=== PATIENT | male | born 1960 | race Caucasian/White ===

== ENCOUNTER 2022-09-14 13:46 | Emergency (ER) | payer OTHER, SELFPAY ==
[2022-09-14] MEDS ORDERED: Famotidine/PF 20 mg/2ml Vial ONE (14:27)
[2022-09-14] MEDS ORDERED: Sodium Chloride 0.9% 50 ML ONE (14:27)
[2022-09-14] MEDS ORDERED: Sodium Chloride 0.9% 1,000 ML ONE (14:27)
== END 2022-09-14 18:24 | disposition home or self-care (01) ==
LOC: MADERS 13:46
DX: T78.2XXA Anaphylactic shock, unspecified, initial encounter (principal); F17.220 Nicotine dependence, chewing tobacco, uncomplicated; W57.XXXA Bitten or stung by nonvenomous insect and other nonvenomous arthropods, initial encounter
CPT/HCPCS: 69200; 94760; 96365; J7050; S0028